=== PATIENT | male | born 1960 | race Hispanic/Latino ===

== ENCOUNTER 2024-08-02 11:18 | Emergency (ER) | payer MEDICARE, SELFPAY ==
--- NOTE | 2024-08-02 11:20 | ED_ITS ---
HPI - Extremity Injury (Lower) General Chief Complaint: Extremity Problem,Nontraumatic Stated Complaint: right leg pain Time Seen by Provider: 08/02/24 11:28 Source: patient and RN notes reviewed Mode of arrival: ambulatory Limitations: no limitations History of Present Illness HPI Narrative: 64-year-old male presents to the [facility] with complaints of right foot dorsal aspect, great toe pain with mild swelling. States he has a history of gout. Normally takes prednisone for flares. Has a history of high blood pressure, did not take his medications today. Related Data Home Medications ?Medication ?Instructions ?Recorded ?Confirmed ?Last Taken ?Type allopurinol 100 mg tablet mg 08/02/24 Unknown History amlodipine 10 mg tablet mg 08/02/24 Unknown History amlodipine 5 mg tablet mg 08/02/24 Unknown History dapagliflozin propanediol 10 mg mg 08/02/24 Unknown History tablet (Farxiga) furosemide 20 mg tablet mg 08/02/24 Unknown History losartan 25 mg tablet mg 08/02/24 Unknown History metoprolol succinate 50 mg mg PO 08/02/24 Unknown History tablet,extended release 24 hr pantoprazole 40 mg tablet,delayed mg PO 08/02/24 Unknown History release rosuvastatin 10 mg tablet mg 08/02/24 Unknown History spironolactone 100 mg tablet mg 08/02/24 Unknown History tramadol 50 mg tablet mg 08/02/24 Unknown History Allergies Allergy/AdvReac Type Severity Reaction Status Date / Time No Known Allergies Allergy Verified 08/02/24 11:38 Review of Systems Review of Systems: All systems reviewed & are unremarkable except as noted in HPI and below Constitutional: Constitutional: Reports no additional constitutional complaints ENT: Reports system reviewed and no additional complaints, except as documented Cardiovascular: Cardiovascular: Reports no additional cardiovascular complaints, Denies chest pain and Denies dyspnea Respiratory: Respiratory: Reports no additional respiratory complaints, Denies chest congestion, Denies cough and Denies dyspnea Musculoskeletal: Musculoskeletal: Reports as per HPI Integumentary/Breasts: Skin/Breast: Reports system reviewed and no additional complaints, except as docu [facility] Past Medical History Medical History (Updated 08/02/24 @ 16:09 by Layne Beasley APRN) History of high cholesterol Hx of gout History of high blood pressure Surgical History Surgical History (Updated 08/02/24 @ 16:09 by Layne Beasley APRN) History of prostate surgery Comments At the time of my signature, I reviewed and agree with the nursing past medical, surgical, social, and family history. There is no relevant family history pertinent to the patient complaint. Exam Const: General: cooperative, healthy appearing, comfortable, no acute distress, well developed, alert and well nourished Nutritional Appearance: well nourished Orientation/consciousness: patient oriented x3 Limitations: no limitations HENMT: Head: normal to inspection Eyes: General: appearance normal, both eyes and all related structures Alignment and Position: alignment normal Neck: Neck: normal visual inspection, full ROM, no lymphadenopathy and no meningeal signs Chest: Chest palpation & inspection: normal inspection of the chest Resp: Effort & Inspection: normal respiratory effort and able to speak in comp lete sentences Cardio: Rate: regular rate Skin: General skin exam: normal color and no rashes or lesions noted Neuro: General: patient oriented x3, moves all extremities and no meningeal signs Cognition (Neuro): normal cognition Speech: normal speech Extrem: General: normal to inspection, full ROM, capillary refill normal, abnormal gait and no calf tenderness bilaterally Right lower extremity: foot Details: tenderness Location: of the dorsal foot and of the great toe, toes with normal ROM and vascular exam Details: dorsalis pedis pulse present and normal capillary refill; no unusual warmth Psych: Appearance: grossly normal and well kempt Mental Status: mental status grossly normal Speech and movement: Normal speech and movement present and Clear speech present Affect: normal affect Attitude: cooperative Course Course Level of Care: Express Care Visit Vital Signs Vital signs: Vital Signs Temperature 98.2 F 08/02/24 11:28 Pulse Rate 08/02/24 11:28 Respiratory Rate 08/02/24 11:28 Blood Pressure 175/100 H 08/02/24 11:28 Pulse Oximetry 98 08/02/24 11:28 Temperature 98.2 F 08/02/24 11:28 Pulse Rate 08/02/24 11:28 Respiratory Rate 08/02/24 11:28 Blood Pressure 175/100 H 08/02/24 11:28 Pulse Oximetry 98 08/02/24 11:28 Reviewed MDM - Extremity Injury (Lower) MDM Narrative Medical decision making narrative: Patient sitting in exam room. Patient is nontoxic, vitals except blood pressure are normal. Blood pressure is elevated, has not taken blood pressure medication today. Patient presents with foot pain, started today. Patient has a history of gout. Denies any injury Patient appropriate for outpatient treatment with close follow-up Discharge instructions reviewed with patient, as well as provided in writing per nursing staff. The instructions also include specific and strict return/GO TO THE ER as well as f/u information. All questions have been answered, and the patient deny any further questions with discharge and discharge plan. Some parts of this dictation were generated by voice recognition software and may contain typographical and/or grammatical inaccuracies. Differential Diagnosis Differential diagnosis: Likely fracture of toe and other (Gout, stress fracture,) Critical Care Time Critical Care Time Critical Care Time: No Discharge Plan Discharge Clinical Impression: Acute pain of right foot, Hx of gout Patient Disposition: Home Condition: Stable Instructions: Antibiotic Form, Low Purine Diet (ED), Gout (ED) Additional Instructions: Follow-up with your primary care provider this week without fail Today your blood pressure was 175/100 it is recommended you take your blood pressure medication daily. Please follow-up with primary care provider within 1-2 weeks to have this rechecked. Patient Language: Italian Prescriptions: New prednisone 10 mg tablet 10 mg PO DIRECTED Qty: 21 0RF Rx Instructions: Take 40 mg daily x3 days, 20 mg daily x3 days, 10 mg daily times 3 days No Action metoprolol succinate 50 mg tablet extended release 24 hr PO spironolactone 100 mg tablet amlodipine 5 mg tablet allopurinol 100 mg tablet tramadol 50 mg tablet amlodipine 10 mg tablet pantoprazole 40 mg tablet,delayed release (DR/EC) PO losartan 25 mg tablet furosemide 20 mg tablet rosuvastatin 10 mg tablet dapagliflozin propanediol [Farxiga] 10 mg tablet Follow-up/Referrals: UNKNOWN,DOCTOR [Non-Staff] - Stand Alone Forms: Work/School Release IP Time of Disposition: 11:44
[2024-08-02 11:28] VITALS: BP 175/100; PULSE 67; RESP 20; TEMP 36.8; O2SAT 98
== END 2024-08-02 11:47 | disposition home or self-care (01) ==
PROVIDERS: Emergency Provider Nurse Practitioner; PCP Physician Assistant
DX: M10.9 Gout, unspecified (principal); E78.00 Pure hypercholesterolemia, unspecified; I10 Essential (primary) hypertension
CPT/HCPCS: 99203; G0463